=== PATIENT | male | born 1930 | race Caucasian/White ===

== ENCOUNTER 2018-09-16 07:59 | Day surgery (SDC) ==
[~2018-09-16 07:59] MED LIST: BRIMONIDINE TARTRATE 0.2% OPTH SOL OP PRN; BSS WITH EPINEPHRINE OP ONE; DEX-MOXI-KETOR OPTH INJ 1/0.5/0.4 MG/ML IO ONE; LIDOCAINE 1% 20 ML MDV ID STA; LIDOCAINE 1%/PHENYLEPHRINE 1.5% BSS (SURGERY) INTRAOCULA ONE; ZOFRAN 4 MG/2 ML IVP ONE
[2018-09-16] MEDS: CYCLOGYL 2% OPTH OP PRN ×4 (08:20→08:35)
[2018-09-16] MEDS: BETADINE OPTH PREP OP PRN ×2 (08:20→08:59)
[2018-09-16] MEDS: TETRACAINE 0.5% UNIT-DOSE OP PRN ×3 (08:20→09:13)
[2018-09-16] MEDS ORDERED: SUBLIMAZE ONE (09:05)
[2018-09-16] MEDS ORDERED: ZOFRAN 4 MG/2 ML ONE (09:05)
[2018-09-16] MEDS ORDERED: VERSED ONE (09:05)
[2018-09-16 11:46] VITALS: TEMP 98
[2018-09-17 15:56] VITALS: BP 112/88
== END 2018-09-16 10:25 | disposition home or self-care (01) ==
LOC: SURG 07:59
PROVIDERS: ATTEND Ophthalmology
DX: H25.811 Combined forms of age-related cataract, right eye (principal)

== ENCOUNTER 2018-09-22 06:29 | Day surgery (SDC) ==
[2018-09-22] MEDS: TETRACAINE 0.5% UNIT-DOSE OP PRN ×2 (07:00→07:40)
[2018-09-22] MEDS: CYCLOGYL 2% OPTH OP PRN ×3 (07:00→07:10)
[2018-09-22] MEDS: BETADINE OPTH PREP OP PRN ×2 (07:00→07:40)
[2018-09-22] MEDS ORDERED: VERSED ONE (07:44)
[2018-09-22] MEDS ORDERED: DECADRON 4 MG/ML SDV ONE (07:44)
[2018-09-22] MEDS ORDERED: TORADOL ONE (07:44)
[2018-09-22] MEDS ORDERED: ZOFRAN 4 MG/2 ML ONE (07:44)
[2018-09-22] MEDS ORDERED: DIPRIVAN 20 ML VIAL IVP ONE (07:44)
[2018-09-22] MEDS ORDERED: SUBLIMAZE ONE (07:44)
[2018-09-22] MEDS ORDERED: MIOSTAT INTRAOCULA ONE (08:15)
[2018-09-22 10:43] VITALS: BP 156/83
[2018-09-22 12:51] VITALS: TEMP 97.1
== END 2018-09-22 08:55 | disposition home or self-care (01) ==
LOC: SURG 06:29
PROVIDERS: ATTEND Ophthalmology
DX: H25.813 Combined forms of age-related cataract, bilateral (principal)